=== PATIENT | male | born 1965 | race Caucasian/White ===

== ENCOUNTER → 2019-06-10 | Outpatient (CLI) | payer BC ==
[~2019-06-10] MED LIST: GLUC-129 PO; VITA1CAP PO
== END ==
LOC: LAB 11:24
PROVIDERS: ATTEND Physician Assistant
DX: I10 Essential (primary) hypertension (principal)
CPT/HCPCS: 36415; 82088; 84244

== ENCOUNTER → 2019-06-21 | Outpatient (CLI) | payer BC ==
[~2019-06-21] MED LIST changes: +IOPAMIDOL 76% 100 ML INFUS BTL 100 ML ONE; +NS(*) 0.9% 50 ML BAG 50 ML ONE
--- NOTE | 2019-06-21 14:10 | RADIOLOGY IMAGING REPORT ---
FACILITY: [facility] - [place] PATIENT NAME: Abiodun Tom : 1965 MR: [id number] V: [id number] EXAM DATE: ORDERING PHYSICIAN: SAAD GARCIA TECHNOLOGIST: Location: [facility] Patient: Abiodun Tom : 1965 Visit/Account:[id number] Date of Sevice: 06/21/2019 EXAMINATION: CTA Abdomen and Pelvis With Contrast 06/21/2019 12:30 PM HISTORY: Secondary hypertension. Elevated bilirubin. TECHNIQUE: Spiral scan was through the abdomen and pelvis during injection of nonionic iodinated in travenous contrast. Examination was performed as CTA abdominal and pelvic imaging with imaging perfo rmed during the arterial phase. Reconstructions including MIP imaging were done. Subsequent portal venous phase imaging was then also done covering the abdomen and the pelvis, as requested. Contrast: 75 mL of IV Isovue 370. One of the following dose optimization techniques was utilized in the performance of this exam: Autom ated exposure control; adjustment of the mA and/or kV according to the patient's size; or use of an i terative reconstruction technique. Specific details can be referenced in the facility's radiology C T exam operational policy. COMPARISON STUDIES: none. FINDINGS: Vessels: Abdominal aorta is normal in caliber with mild atherosclerotic calcifications. No dissectio n. Single renal arteries on each side. No stenosis or vascular irregularity. Celiac, SMA, and YULY are patent. There is some tortuosity of the iliacs without significant aneurysm. No dissection or s tenosis. IVC enhancement is normal. SMV and portal vein are patent. Liver / biliary: No biliary dilatation or gallbladder wall thickening. No visible cholelithiasis. L iver is negative. Pancreas: Negative. Duct is not dilated. Spleen: negative Adrenal glands: negative Kidneys / retroperitoneum: Small hypoenhancing cortical foci bilaterally presumably are cysts. No st one, obstruction, or other acute finding. Pelvic structures: negative Bowel / peritoneum / mesenteries: negative Musculoskeletal / Body wall: Degenerative changes in the spine. Lymph node assessment: negative Lower chest: negative IMPRESSION: 1. Unremarkable CTA of the abdomen and pelvis. Specifically, no evidence of renal vascular stenosis with respect to history of hypertension. 2. No significant acute abnormality in the abdomen or pelvis. Hepatobiliary assessment is unremarka ble. Report Dictated By: Manuel Sánchez MD at 06/21/2019 1:50 PM Report E-Signed By: Manuel Sánchez MD at 06/21/2019 2:02 PM WSN:[email or web address]
== END ==
LOC: CT 00:24
PROVIDERS: ATTEND Physician Assistant
DX: I15.9 Secondary hypertension, unspecified (principal); E80.7 Disorder of bilirubin metabolism, unspecified
CPT/HCPCS: 74174; J7050; Q9967